=== PATIENT | female | born 1980 | race Two or more races ===

== ENCOUNTER 2018-01-01 14:45 | Emergency (ER) | payer BC ==
[~2018-01-01] VITALS: Ht 160 cm; Wt 108.9 kg
--- NOTE | 2018-01-01 15:30 | NUR ---
MSE DONE BY DR YEE AT BEDSIDE ROOM 04A.
--- NOTE | 2018-01-01 16:00 | NUR ---
Patient discharged to home in stable conditon. Written and verbal after care instructions given. Patient verbalizes understanding of instructions.
[2018-01-01 16:17] VITALS: BP 135/78
== END 2018-01-01 16:20 | disposition home or self-care (01) ==
LOC: ER 14:45
DX: N63.20 Unspecified lump in the left breast, unspecified quadrant (principal); Z12.39 Encounter for other screening for malignant neoplasm of breast
CPT/HCPCS: 99281; A4663

== ENCOUNTER 2018-06-24 17:37 | Emergency (ER) | payer BC ==
[~2018-06-24] VITALS: Ht 160 cm; Wt 106.6 kg
--- NOTE | 2018-06-24 18:56 | NUR ---
Dr luna at the bedside for MSE.
[2018-06-24] MEDS ORDERED: IV NORMAL SALINE 1000 ML BAG IV ONE (19:00)
[2018-06-24 19:26] LABS: BASOPHILS % (AUTO) 0.6 % (0.0-2.0); EOSINOPHILS # (AUTO) 0.1 K/uL (0.0-0.7); EOSINOPHILS % (AUTO) 0.9 % (0.0-7.0); HEMATOCRIT 41.6 % (31.2-41.9); HEMOGLOBIN 14.2 g/dL (10.9-14.3); LYMPHOCYTES # (AUTO) 2.5 K/uL (20.0-40.0); MEAN CORPUSCULAR HEMOGLOBIN 30.8 uug (24.7-32.8); MEAN CORPUSCULAR HGB CONC 34 g/dL (32.3-35.6); MEAN CORPUSCULAR VOLUME 90.3 fL (75.5-95.3); MONOCYTES # (AUTO) 0.4 K/uL (2.0-10.0); MONOCYTES % (AUTO) 4.8 % (0.0-11.0); NEUTROPHILS # (AUTO) 5.5 K/uL (1.8-8.9); NEUTROPHILS % (AUTO) 64.7 % (38.5-71.5); PLATELET COUNT (AUTO) 216 K/uL (179-408); WHITE BLOOD COUNT (AUTO) 8.5 K/uL (3.8-11.8)
[2018-06-24 19:43] LABS: CARBON DIOXIDE 27 mmol/L (21-32); CHLORIDE 101 mmol/L (98-107); CREATININE 0.8 mg/dL (0.6-1.3); GLUCOSE 96 mg/dL (74-106); POTASSIUM 3.4 mmol/L (3.5-5.1); UREA NITROGEN, BLOOD 14 mg/dL (7-18)
[2018-06-24 19:48] LABS: ALANINE AMINOTRANSFERASE 35 U/L (14-59); ALKALINE PHOSPHATASE 81 U/L (50-136); ASPARTATE AMINOTRANSFERASE 17 U/L (15-37); BILIRUBIN,DIRECT 0.1 mg/dL (0.0-0.2); BILIRUBIN,TOTAL 0.3 mg/dL (0.2-1.0); TOTAL PROTEIN, SERUM 8.5 g/dL (6.4-8.2)
[2018-06-24] MEDS ORDERED: NORMAL SALINE FLUSH 10 ML DISP.SYRIN ONE (20:13)
[2018-06-24] MEDS ORDERED: IOHEXOL 300MG/ML 100 ML INFUS..BTL ONE (20:13)
[2018-06-24] MEDS ORDERED: IV NORMAL SALINE 250 ML IV ONE (20:13)
[2018-06-24] MEDS ORDERED: SWABABLE VALVE TRANSFER SET EA MC ONE (20:13)
--- NOTE | 2018-06-24 21:25 | NUR ---
Patient discharged to home in stable conditon. Written and verbal after care instructions given. Patient verbalizes understanding of instructions. Patient ambulated out of ER with steady gait, no acute signs of distress, VSS, all belongings taken IV site discontinued.
[2018-06-24 21:27] VITALS: BP 124/81
== END 2018-06-24 21:27 | disposition home or self-care (01) ==
LOC: ER 17:37
DX: Z00.00 Encounter for general adult medical examination without abnormal findings (principal)
CPT/HCPCS: 36415; 70030-TC; 85025; A4663; J3490; J7030; J7050; Q9967

== ENCOUNTER 2020-01-24 21:33 | Emergency (ER) | payer BC ==
[~2020-01-24] VITALS: Ht 160 cm; Wt 113.9 kg
[2020-01-24 21:54] LABS: *BILIRUBIN,URIN NEGATIVE (NEGATIVE); *BLOOD, URINE NEGATIVE (NEGATIVE); *CLARITY,URINE CLEAR (CLEAR); *COLOR,URINE YELLOW (YELLOW); *KETONES,URINE NEGATIVE (NEGATIVE); *UROBILINOGEN,URINE 0.2 E.U./dl (NORMAL); LEUKOCYTE ESTERASE ,URINE NEGATIVE (NEGATIVE); NITRITE, URINE NEGATIVE (NEGATIVE); PH,URINE 5.5 (5.0-8.0); UGLUCOSE NEGATIVE (NEGATIVE)
[2020-01-24 21:55] LABS: *URINE HCG, QUAL NEGATIVE (NEGATIVE)
[2020-01-24 22:09] LABS: BASOPHILS # (AUTO) 0.1 K/uL (0.0-8.0); BASOPHILS % (AUTO) 0.6 % (0.0-2.0); EOSINOPHILS # (AUTO) 0.1 K/uL (0.0-0.7); EOSINOPHILS % (AUTO) 0.8 % (0.0-7.0); HEMATOCRIT 42.8 % (31.2-41.9); HEMOGLOBIN 14.5 g/dL (10.9-14.3); LYMPHOCYTES # (AUTO) 2.6 K/uL (20.0-40.0); LYMPHOCYTES % (AUTO) 27.5 % (20.5-51.5); MEAN CORPUSCULAR HEMOGLOBIN 30.2 uug (24.7-32.8); MEAN CORPUSCULAR HGB CONC 34 g/dL (32.3-35.6); MEAN CORPUSCULAR VOLUME 89.3 fL (75.5-95.3); MONOCYTES # (AUTO) 0.5 K/uL (2.0-10.0); MONOCYTES % (AUTO) 5.2 % (0.0-11.0); NEUTROPHILS # (AUTO) 6.1 K/uL (1.8-8.9); NEUTROPHILS % (AUTO) 65.9 % (38.5-71.5); PLATELET COUNT (AUTO) 238 K/uL (179-408); WHITE BLOOD COUNT (AUTO) 9.3 K/uL (3.8-11.8)
[2020-01-24 22:23] LABS: BILIRUBIN,DIRECT 0.1 mg/dL (0.0-0.2); BILIRUBIN,TOTAL 0.5 mg/dL (0.2-1.0); CREATININE 0.9 mg/dL (0.6-1.3); POTASSIUM 4.1 mmol/L (3.5-5.1)
[2020-01-24] MEDS ORDERED: LORAZEPAM 0.5 MG TABLET PO ONE (22:30)
--- NOTE | 2020-01-24 22:30 | NUR ---
Vitals improved after PO hydration. Pt states she feels anxious.
[2020-01-24] MEDS ORDERED: LORAZEPAM 1 MG TABLET ONE (22:34)
--- NOTE | 2020-01-24 22:38 | NUR ---
Patient discharged to home in stable condition. Written and verbal after care instructions given. Stressed follow up or return to ER for worsening s/s. Pt left ER in stable condition. Instructed pt not to drive home. Patient verbalizes understanding of instructions.
[2020-01-24 22:40] VITALS: BP 113/76
== END 2020-01-24 22:40 | disposition home or self-care (01) ==
LOC: ER 21:38
DX: F41.9 Anxiety disorder, unspecified (principal); L29.9 Pruritus, unspecified
CPT/HCPCS: 36415; 83690; 84703; 85025; A4663

== ENCOUNTER 2020-03-05 07:06 | Emergency (ER) | payer BC ==
[~2020-03-05] VITALS: Ht 160 cm; Wt 113.9 kg
--- NOTE | 2020-03-05 07:18 | NUR ---
DR PRESTON AT BEDSIDE FOR EVAL.
[2020-03-05 07:44] LABS: POTASSIUM 3.4 mmol/L (3.5-5.1)
[2020-03-05 07:53] VITALS: BP 128/77
--- NOTE | 2020-03-05 07:53 | NUR ---
Patient discharged to home in stable condition. Written and verbal after care instructions given. Patient verbalizes understanding of instructions. Stressed follow up or return to ER for worsening s/s.
== END 2020-03-05 07:54 | disposition home or self-care (01) ==
LOC: ER 07:07
DX: F41.9 Anxiety disorder, unspecified (principal); F42.9 Obsessive-compulsive disorder, unspecified; E87.6 Hypokalemia
CPT/HCPCS: 36415; A4663

== ENCOUNTER 2020-03-28 16:06 | Emergency (ER) | payer BC ==
[~2020-03-28] VITALS: Ht 157.5 cm; Wt 104.3 kg
[~2020-03-28 16:06] MED LIST: QUET200T PO; SERT100T PO
[2020-03-28 16:56] LABS: BASOPHILS # (AUTO) 0.1 K/uL (0.0-8.0); BASOPHILS % (AUTO) 0.9 % (0.0-2.0); EOSINOPHILS # (AUTO) 0.1 K/uL (0.0-0.7); EOSINOPHILS % (AUTO) 0.9 % (0.0-7.0); HEMATOCRIT 41.5 % (31.2-41.9); HEMOGLOBIN 13.7 g/dL (10.9-14.3); LYMPHOCYTES # (AUTO) 1.6 K/uL (20.0-40.0); MEAN CORPUSCULAR HEMOGLOBIN 29.6 uug (24.7-32.8); MEAN CORPUSCULAR HGB CONC 33 g/dL (32.3-35.6); MEAN CORPUSCULAR VOLUME 89.2 fL (75.5-95.3); MONOCYTES # (AUTO) 0.5 K/uL (2.0-10.0); NEUTROPHILS # (AUTO) 5.1 K/uL (1.8-8.9); NEUTROPHILS % (AUTO) 69.2 % (38.5-71.5); PLATELET COUNT (AUTO) 201 K/uL (179-408); RED BLOOD CELL COUNT(AUTO) 4.65 MIL/uL (3.63-4.92); WHITE BLOOD COUNT (AUTO) 7.3 K/uL (3.8-11.8)
[2020-03-28 17:01] LABS: CARBON DIOXIDE 29 mmol/L (21-32); CHLORIDE 103 mmol/L (98-107); CREATININE 0.9 mg/dL (0.6-1.3); GLUCOSE 92 mg/dL (74-106); POTASSIUM 3.8 mmol/L (3.5-5.1); UREA NITROGEN, BLOOD 10 mg/dL (7-18)
[2020-03-28 17:06] LABS: ALANINE AMINOTRANSFERASE 35 U/L (14-59); ALKALINE PHOSPHATASE 118 U/L (50-136); ASPARTATE AMINOTRANSFERASE 15 U/L (15-37); BILIRUBIN,DIRECT < 0.1 mg/dL (0.0-0.2); BILIRUBIN,TOTAL 0.5 mg/dL (0.2-1.0); TOTAL PROTEIN, SERUM 7.7 g/dL (6.4-8.2)
--- NOTE | 2020-03-28 17:47 | NUR ---
Patient discharged to home in stable condition. Written and verbal after care instructions given. Patient verbalizes understanding of instructions. Stressed follow up or return to ER for worsening s/s.pt walks in steady gait. pt says feels better.
[2020-03-28 17:48] VITALS: BP 129/71
== END 2020-03-28 17:54 | disposition home or self-care (01) ==
LOC: ER 16:08
DX: R07.9 Chest pain, unspecified (principal); I10 Essential (primary) hypertension; R94.31 Abnormal electrocardiogram [ECG] [EKG]; F41.9 Anxiety disorder, unspecified; F42.9 Obsessive-compulsive disorder, unspecified; Z79.899 Other long term (current) drug therapy; Z82.49 Family history of ischemic heart disease and other diseases of the circulatory system
CPT/HCPCS: 36415; 70030-TC; 85025; 93005; A4663

== ENCOUNTER 2020-11-08 19:48 | Emergency (ER) | payer BC ==
[~2020-11-08] VITALS: Ht 160 cm; Wt 84.5 kg
[2020-11-08] MEDS ORDERED: ASPIRIN 81 MG TAB.CHEW PO ONE (20:30)
[2020-11-08] MEDS ORDERED: LORAZEPAM 2 MG/1 ML VIAL IV ONE (20:30)
[2020-11-08 20:36] LABS: *BILIRUBIN,URIN 1+ (NEGATIVE); *BLOOD, URINE NEGATIVE (NEGATIVE); *CLARITY,URINE CLEAR (CLEAR); *COLOR,URINE YELLOW (YELLOW); *KETONES,URINE 3+ (NEGATIVE); *UROBILINOGEN,URINE 0.2 E.U./dl (NORMAL); LEUKOCYTE ESTERASE ,URINE NEGATIVE (NEGATIVE); NITRITE, URINE NEGATIVE (NEGATIVE); PH,URINE 5.5 (5.0-8.0); UGLUCOSE NEGATIVE (NEGATIVE)
[2020-11-08 20:37] LABS: BASOPHILS % (AUTO) 0.6 % (0.0-2.0); EOSINOPHILS # (AUTO) 0.1 K/uL (0.0-0.7); EOSINOPHILS % (AUTO) 1.8 % (0.0-7.0); HEMATOCRIT 39.7 % (31.2-41.9); HEMOGLOBIN 13.2 g/dL (10.9-14.3); LYMPHOCYTES # (AUTO) 1.9 K/uL (20.0-40.0); LYMPHOCYTES % (AUTO) 32.3 % (20.5-51.5); MEAN CORPUSCULAR HEMOGLOBIN 30.2 uug (24.7-32.8); MEAN CORPUSCULAR HGB CONC 33 g/dL (32.3-35.6); MEAN CORPUSCULAR VOLUME 90.6 fL (75.5-95.3); MONOCYTES # (AUTO) 0.3 K/uL (2.0-10.0); MONOCYTES % (AUTO) 5.7 % (0.0-11.0); NEUTROPHILS # (AUTO) 3.5 K/uL (1.8-8.9); NEUTROPHILS % (AUTO) 59.6 % (38.5-71.5); PLATELET COUNT (AUTO) 171 K/uL (179-408); RED BLOOD CELL COUNT(AUTO) 4.38 MIL/uL (3.63-4.92); WHITE BLOOD COUNT (AUTO) 5.8 K/uL (3.8-11.8)
[2020-11-08] MEDS ORDERED: LORAZEPAM 2 MG/1 ML VIAL ONE (20:37)
[2020-11-08] MEDS ORDERED: ASPIRIN 81 MG TAB.CHEW ONE (20:37)
[2020-11-08 20:41] LABS: *URINE HCG, QUAL NEGATIVE (NEGATIVE)
[2020-11-08 20:43] LABS: CREATININE 0.8 mg/dL (0.6-1.3); POTASSIUM 3.7 mmol/L (3.5-5.1)
[2020-11-08 20:55] LABS: BILIRUBIN,DIRECT 0.4 mg/dL (0.0-0.2); BILIRUBIN,TOTAL 0.4 mg/dL (0.2-1.0); TOTAL PROTEIN, SERUM 7.5 g/dL (6.4-8.2)
[2020-11-08 21:00] LABS: *AMPHETAMINE, URINE NEGATIVE (NEGATIVE); *CANNABINOID, URINE NEGATIVE (NEGATIVE); *COCCAINE, URINE NEGATIVE (NEGATIVE); *OPIATE, URINE NEGATIVE (NEGATIVE); *PHENCYCLIDINE SCREEN,URINE NEGATIVE (NEGATIVE)
[2020-11-08] MEDS ORDERED: IV NORMAL SALINE 1000 ML BAG IV ONE (21:00)
[2020-11-08] MEDS ORDERED: LORA-259 PO (22:00)
--- NOTE | 2020-11-08 23:33 | NUR ---
Patient is resting comfortably in bed. Appears in n acute distress. Vitals are stable.
[2020-11-09 00:03] VITALS: BP 116/73
--- NOTE | 2020-11-09 00:03 | NUR ---
IV removed. Catheter intact and site benign. Pressure and 4x4 gauze applied to site. No bleeding noted.
== END 2020-11-09 00:03 | disposition home or self-care (01) ==
LOC: ER 19:51
DX: R07.9 Chest pain, unspecified (principal); F06.4 Anxiety disorder due to known physiological condition; F42.9 Obsessive-compulsive disorder, unspecified; Z80.9 Family history of malignant neoplasm, unspecified; R94.31 Abnormal electrocardiogram [ECG] [EKG]
CPT/HCPCS: 36415; 71045; 80048; 80076; 80307; 81003; 83880; 84484 ×2; 84703; 85025; 85379; 93005 ×2; 96361; 96374; 99285; J2060; 70030-TC; A4663